=== PATIENT | female | born 1990 | race African-American/Black ===

== ENCOUNTER 2016-10-11 20:31 | Emergency (ER) | payer OTHER | END 2016-10-11 22:48 | disposition home or self-care (01) | LOC: FER 20:31 | DX: O99.512 Diseases of the respiratory system complicating pregnancy, second trimester (principal); J01.00 Acute maxillary sinusitis, unspecified; Z3A.14 14 weeks gestation of pregnancy | CPT/HCPCS: 99283 ==

== ENCOUNTER 2020-08-20 22:16 | Emergency (ER) | payer OTHER ==
[2020-08-20] MEDS ORDERED: AUGMENTIN 875-1 EACH PO (23:13)
== END 2020-08-20 23:56 | disposition home or self-care (01) ==
LOC: FER 22:16
DX: J32.9 Chronic sinusitis, unspecified (principal); F17.200 Nicotine dependence, unspecified, uncomplicated
CPT/HCPCS: 99283